=== PATIENT | male | born 1955 | race Caucasian/White ===

== ENCOUNTER 2016-11-29 12:14 | Emergency (ER) | payer OTHER ==
[~2016-11-29] VITALS: Ht 175.3 cm; Wt 83.9 kg
--- NOTE | 2016-11-29 12:42 | ED GI/GU/ABDOMINAL COMPLAINT ---
History of Present Illness General Chief Complaint: Abdominal Pain/Flank Pain Stated Complaint: ABD PAIN SINCE THIS AM Source: patient, family Exam Limitations: no limitations Vital Signs & Intake/Output Vital Signs & Intake/Output Vital Signs Date Time Temp Pulse Resp B/P B/P Pulse O2 O2 Flow FiO2 Mean Ox Delivery Rate 11/29 1402 97.6 66 18 128/76 99 Room Air 11/29 1223 96.7 69 16 130/80 97 Room Air Allergies Coded Allergies: NO KNOWN ALLERGIES (11/29/16) Reconcile Medications Olmesartan Medoxomil (Benicar) 20 MG TABLET 0.5 TAB PO DAILY HEART (Reported) Triage Note: PT STATES HE HAS HAD SEVERE STOMACH PAINS THAT COMES IN WAVES. PT WENT TO MEDICAL AT WORK AND WAS TOLD TO COME GET CHECKED TO R/O HERNIA. PT STATES HE HAD FOOD POINENING IN THE PAST AND FELT THAT IS WHAT IT WAS. Triage Nurses Notes Reviewed? yes HPI: Patient has had abdominal pain since this morning. The pain is periumbilical. Slight nausea but no vomiting. Patient states he had 4 bowel movements today the first to her normal dose second to work more paced light. The pain is constant. There are no aggravating or mitigating factors. He rates the pain at a 6 out of 10. The pain is cramping in nature. The pain comes wave like in intensity but never goes away entirely. Patient went to the [facility] at work and they sent him in to rule out hernia. Past History Travel History Traveled to [place] past 21 day No Medical History Any Pertinent Medical History? see below for history Cardiovascular: hypertension Surgical History Surgical History: non-contributory Psychosocial History What is your primary language Botswanan Tobacco Use: Current Not Daily Daily Tobacco Use Amount/Type: =< 4 Cigarettes daily ETOH Use: occasional use Illicit Drug Use: denies illicit drug use Family History Hx Contributory? No Review of Systems Review of Systems Constitutional: Reports: no symptoms. EENTM: Reports: no symptoms. Respiratory: Reports: no symptoms. Cardiovascular: Reports: no symptoms. GI: Reports: see HPI, abdominal pain, nausea. Genitourinary: Reports: no symptoms. Musculoskeletal: Reports: no symptoms. Skin: Reports: no symptoms. Neurological/Psychological: Reports: no symptoms. Hematologic/Endocrine: Reports: no symptoms. Immunologic/Allergic: Reports: no symptoms. All Other Systems: Reviewed and Negative Physical Exam Physical Exam General Appearance: well developed/nourished, alert, awake Head: atraumatic, normal appearance Eyes: Bilateral: PERRL, EOMI. Ears, Nose, Throat, Mouth: hearing grossly normal, moist mucous membrane Neck: normal inspection, supple, full range of motion Respiratory: normal breath sounds, chest non-tender, no respiratory distress, lungs clear Cardiovascular: regular rate/rhythm, normal peripheral pulses Gastrointestinal: normal bowel sounds, soft, no organomegaly, tenderness ( PERIUMBILICAL) Back: normal inspection, normal range of motion Extremities: normal range of motion Neurologic/Psych: no motor/sensory deficits, awake, alert, oriented x 3, normal mood/affect Skin: intact, normal color, warm/dry Core Measures ACS in differential dx? No Severe Sepsis Present: No Septic Shock Present: No Progress Differential Diagnosis: appendicitis, biliary colic, bowel obstruction, cholecystitis, diverticulitis, gastritis, hepatitis, hernia, ischemic bowel, inflamm bowel dis, pancreatitis, PUD/GERD, SBO Plan of Care: Orders Procedure Date/time Status EKG 11/29 1536 Active URINALYSIS 11/29 1241 Complete LIPASE 11/29 1241 Complete COMPREHENSIVE METABOLIC PANEL 11/29 1241 Complete CBC WITHOUT DIFFERENTIAL 11/29 1241 Complete AMYLASE 11/29 1241 Complete Laboratory Tests 11/29/16 1354: Urine Color YEL, Urine Clarity CLEAR, Urine pH 7.0, Ur Specific [place] 1.010, Urine Protein NEG, Urine Ketones NEG, Urine Nitrite NEG, Urine Bilirubin NEG, Urine Urobilinogen 0.2, Ur Leukocyte Esterase NEG, Ur Microscopic EXAM NOT REQUIRED, Urine Hemoglobin NEG, Urine Glucose NEG 11/29/16 1251: Anion Gap 10, Estimated GFR > 60, BUN/Creatinine Ratio 14.0, Glucose 94, Calcium 9.5, Total Bilirubin 0.7, AST 23, ALT 46, Alkaline Phosphatase 79, Total Protein 6.6, Albumin 4.6, Globulin 2.0, Albumin/Globulin Ratio 2.3 H, Amylase 53, Lipase 69, CBC w Diff NO MAN DIFF REQ, RBC 5.04, MCV 87.6, MCH 30.1, RDW 12.7, MPV 7.9, Gran % 73.9, Lymphocytes % 19.1 L, Monocytes % 6.2, Eosinophils % 0.4, Basophils % 0.4, Absolute Granulocytes 7.2 H, Absolute Lymphocytes 1.9, Absolute Monocytes 0.6, Absolute Eosinophils 0, Absolute Basophils 0, PUBS MCHC 34.3 Diagnostic Imaging: Viewed by Me: CT Scan. Discussed w/RAD: CT Scan. Radiology Impression: PATIENT: SALONI CALZADA PRESENT AGE: 61 PATIENT ACCOUNT NO: [id number] : 59 LOCATION: [facility] ORDERING PHYSICIAN: RACHEL LEE MD SERVICE DATE: 11/29/16 EXAM TYPE: CAT - CT ABD & PELVIS W IV CONTRAST EXAMINATION: CT ABDOMEN AND PELVIS WITH CONTRAST CLINICAL INFORMATION: 61-year-old male patient with periumbilical pain. COMPARISON: None TECHNIQUE: Multidetector volumetric imaging was performed of the abdomen and pelvis before and after the IV administration of 95 mL of Optiray 350 intravenous contrast. Sagittal and coronal reformatted images were obtained on the technologist's workstation. DLP: 462. mGy-cm FINDINGS: TRUCK JUMPER: Abnormally dilated air and fluid-filled loops of proximal small intestine in the left flank region indicate partial or early intestinal obstruction of the small intestine. LUNG BASES: The visualized lung bases are unremarkable. LIVER, GALLBLADDER, AND BILIARY TREE: Normal. PANCREAS: Unremarkable. SPLEEN: Normal in size. A punctate calcification represents a granuloma. ADRENAL GLANDS: Unremarkable. KIDNEYS AND URETERS: The kidneys are normal in size, shape, and attenuation. No hydronephrosis, hydroureter, or calculi seen. No perinephric stranding. BLADDER: Partially filled and unremarkable. A urachal remnant is present. GASTROINTESTINAL TRACT: The colon is normal as is the appendix. The stomach is decompressed. Abnormally dilated fluid-filled loops of small intestine are present in the left abdomen. There are two noncontiguous areas of relative luminal narrowing with thickened muniz and mucosal enhancement seen in the lower left abdomen. This is felt to be the cause of the partial or early small bowel obstruction. In addition, 11 cm of the distal and terminal ileum show relative fixed narrowing. There is no free air or free fluid. ABDOMINAL WALL: No significant hernia is appreciated. LYMPH NODES: Normal. VASCULAR: Unremarkable. PELVIC VISCERA: Unremarkable. OSSEOUS STRUCTURES: Unremarkable except for disc space narrowing and vacuum joint at L5-S1. IMPRESSION: 1. Early or partial intestinal obstruction level of the proximal small intestine. Based on appearance of the terminal and distal ileum, the skip areas of abnormally thick walled enhancing loops in the left abdomen, some form of IBD is suspected. Does the patient have a history of Crohn's disease? 2. No hernia within the anterior abdominal wall. 3. Relatively fixed narrowing of the terminal and distal ileum. DICTATED BY: ANGELINA EPTSEIN MD DATE/TIME DICTATED:11/29/161408 QUANTITY SURVEYOR:COURTNEY DATE/TIME TRANSCRIBED:11/29/161408 CONFIDENTIAL, DO NOT COPY WITHOUT APPROPRIATE AUTHORIZATION. <Electronically signed in Other Vendor System> SIGNED BY: ANGELINA EPSTEIN MD 11/29/16 1176 Initial ED EKG: NSR, no ST T wave changes Comments: Discussed with Dr. Banda. He will have surgical PA evaluate the patient. Departure Departure Disposition: HOME OR SELF CARE Condition: Stable Clinical Impression Primary Impression: Lower abdominal pain, unspecified Referrals: MANI CASTILLO,BASHIR VALDEZ MD,BONI Shook Additional Instructions: CLEAR LIQUIDS ONLY UNTIL PAIN FREE FOLLOW UP WITH DR. VALDEZ RETURN FOR AQNY CONCERNS Departure Forms: Customer Survey General Discharge Information
[2016-11-29 12:59] LABS: ABSOLUTE BASOPHIL COUNT 0 /CUMM (0.0-0.2); ABSOLUTE EOSINOPHIL COUNT 0 /CUMM (0.0-0.7); ABSOLUTE GRANULOCYTE CT 7.2 /CUMM (1.4-6.5); ABSOLUTE LYMPH COUNT 1.9 /CUMM (1.2-3.4); ABSOLUTE MONOCYTE COUNT 0.6 /CUMM (0.10-0.60); BASOPHIL % 0.4 % (0.0-2.0); EOSINOPHIL % 0.4 % (0-5); GRANULOCYTE % 73.9 % (42.2-75.2); HEMATOCRIT 44.2 % (42-52); MEAN CORPUSCULAR HGB 30.1 PG (27.0-31.0); MEAN CORPUSCULAR HGB CONC 34.3 G/DL (33.0-37.0); MEAN CORPUSCULAR VOLUME 87.6 FL (80.0-94.0); MEAN PLATELET VOLUME 7.9 FL (7.4-10.4); PLATELET COUNT 249 /CUMM (130-400); RBC DISTRIBUTION WIDTH 12.7 % (11.5-14.5); RED BLOOD CELL CT 5.04 /CUMM (4.70-6.10); WHITE BLOOD CELL COUNT 9.8 /CUMM (4.8-10.8)
[2016-11-29] MEDS ORDERED: BENICAR20 M1 PO (14:11)
--- NOTE | 2016-11-29 14:35 | CT SCAN REPORT ---
EXAMINATION: CT ABDOMEN AND PELVIS WITH CONTRAST CLINICAL INFORMATION: 61-year-old male patient with periumbilical pain. COMPARISON: None TECHNIQUE: Multidetector volumetric imaging was performed of the abdomen and pelvis before and after the IV administration of 95 mL of Optiray 350 intravenous contrast. Sagittal and coronal reformatted images were obtained on the technologist's workstation. DLP: 462. mGy-cm FINDINGS: CHARACTER IMPERSONATOR: Abnormally dilated air and fluid-filled loops of proximal small intestine in the left flank region indicate partial or early intestinal obstruction of the small intestine. LUNG BASES: The visualized lung bases are unremarkable. LIVER, GALLBLADDER, AND BILIARY TREE: Normal. PANCREAS: Unremarkable. SPLEEN: Normal in size. A punctate calcification represents a granuloma. ADRENAL GLANDS: Unremarkable. KIDNEYS AND URETERS: The kidneys are normal in size, shape, and attenuation. No hydronephrosis, hydroureter, or calculi seen. No perinephric stranding. BLADDER: Partially filled and unremarkable. A urachal remnant is present. GASTROINTESTINAL TRACT: The colon is normal as is the appendix. The stomach is decompressed. Abnormally dilated fluid-filled loops of small intestine are present in the left abdomen. There are two noncontiguous areas of relative luminal narrowing with thickened muniz and mucosal enhancement seen in the lower left abdomen. This is felt to be the cause of the partial or early small bowel obstruction. In addition, 11 cm of the distal and terminal ileum show relative fixed narrowing. There is no free air or free fluid. ABDOMINAL WALL: No significant hernia is appreciated. LYMPH NODES: Normal. VASCULAR: Unremarkable. PELVIC VISCERA: Unremarkable. OSSEOUS STRUCTURES: Unremarkable except for disc space narrowing and vacuum joint at L5-S1. IMPRESSION: 1. Early or partial intestinal obstruction level of the proximal small intestine. Based on appearance of the terminal and distal ileum, the skip areas of abnormally thick walled enhancing loops in the left abdomen, some form of IBD is suspected. Does the patient have a history of Crohn's disease? 2. No hernia within the anterior abdominal wall. 3. Relatively fixed narrowing of the terminal and distal ileum.
--- NOTE | 2016-11-29 16:02 | Cons- General Surgery ---
General Information and HPI Consulting Request Date of Consult: 11/29/16 Requested By: Dr Lee, ER Reason for Consult: abdominal pain Source of Information: patient Exam Limitations: no limitations History of Present Illness: 61-year-old male without any previous abdominal problems or bowel surgeries, presents to the ER with sudden onset of severe diffuse abdominal cramping sensation which started at 7:30 this morning. He states that he went out to a restaurant last night, thought that the chicken might be "bad ". He woke this morning with above symptoms and after being evaluated at his medical facility at work, he was sent here for further evaluation. In the emergency department he received blood tests and a CT scan of the abdomen and pelvis with IV contrast which showed suspicion for partial or early small bowel obstructions and possible skip lesions suggestive of Crohn's disease. Patient denies any previous abdominal problems, he does not have any previous abdominal pain. He has history of having a hemorrhoid surgery approximately 5 years ago due to constipation issues and has been on Metamucil since without any problems with further constipation or hemorrhoids. Patient denies any nausea or vomiting. He states his abdomen feels distended, he has had for soft bowel movements of toothpaste consistency and he has a normal appetite, he states"I'm starving". His pain is about a 2 out of 10 in the mid abdominal region. He has had 3 colonoscopies in the past with only polyps noted, last colonoscopy was 2013. He sees Dr. Brad Cardoza as outpatient. Surgery was consulted for further evaluation of his abdominal pain and CT findings. Allergies/Medications Allergies: Coded Allergies: NO KNOWN ALLERGIES (11/29/16) Home Med List: Olmesartan Medoxomil (Benicar) 20 MG TABLET 0.5 TAB PO DAILY HEART (Reported) Past History Medical History Cardiovascular: hypertension Gastrointestinal: hemorrhoid Surgical History Pertinent Surgical History: hemorrhoidectomy Multiple orthopedic surgeries Psychosocial History ETOH Use: occasional use Illicit Drug Use: denies illicit drug use Review of Systems Review of Systems: Review of systems: See HPI, all other systems negative. Constitutional: No chills fever or weight loss HEENT: No visual changes no sore throat no congestion Cardiovascular: No chest pain ,palpitation , orthopnea or ankle swelling Skin: No jaundice no rashes Respiratory: No dyspnea cough sputum or hemoptysis GI: No nausea no vomiting see HPI : No dysuria no hematuria Musclulo skeletal: No back pain no neck pain, Neurologic: No numbness no confusion Psych: No stress anxiety or depression,. Heme/endocrine: No bruising no bleeding no polyuria or polydipsia Immunology: No splenectomy or history of AIDS Exam & Diagnostic Data Vital Signs and I&O Vital Signs Date Time Temp Pulse Resp B/P B/P Pulse O2 O2 Flow FiO2 Mean Ox Delivery Rate 11/29 1402 97.6 66 18 128/76 99 Room Air 11/29 1223 96.7 69 16 130/80 97 Room Air Intake & Output 11/29 1600 11/29 0800 11/29 0000 11/28 1600 11/28 0800 11/28 0000 Intake Total 1000 Output Total Balance 1000 Intake, IV 1000 Patient 185 lb Weight Weight Reported by Patient Measurement Method Physical Exam: Well-developed well-nourished person in no acute distress HEENT: Normal EENT exam, extraocular motion intact, Nose is atraumatic. External auditory canal and Tympanic membranes clear. Pharynx normal. No swelling or edema. Neck: Supple, no lymphadenopathy, normal range of motion without pain or tenderness Back: Nontender, no CVA tenderness. Full range of motion Cardiovascular: Regular rate and rhythms no murmurs, normal JVP Respiratory: Chest nontender. No respiratory distress. Breath sounds clear to auscultation bilaterally Abdomen: Very small reducible umbilical hernia, nontender. Soft, mild tenderness to the mid abdominal region, mild abdominal distention no appreciable organomegaly. Hypoactive bowel sounds. No ascites Extremity: No edema, no calf tenderness to palpation, normal and equal pulses. Neuro: Alert oriented x3, motor sensory normal, Skin: No appreciable rash on exposed skin, skin is warm and dry. Psych: Mood and affect is normal, memory and judgment is normal. Last 24 Hours of Labs: Laboratory Tests 11/29 11/29 1354 1251 Chemistry Sodium (137 - 145 mmol/L) 140 Potassium (3.5 - 5.1 mmol/L) 4.2 Chloride (98 - 107 mmol/L) 101 Carbon Dioxide (22 - 30 mmol/L) 28 Anion Gap (5 - 16) 10 BUN (9 - 20 mg/dL) 14 Creatinine (0.7 - 1.2 mg/dL) 1.0 Estimated GFR (>60 ml/min) > 60 BUN/Creatinine Ratio (7 - 25 %) 14.0 Glucose (65 - 99 mg/dL) 94 Calcium (8.4 - 10.2 mg/dL) 9.5 Total Bilirubin (0.2 - 1.3 mg/dL) 0.7 AST (17 - 59 U/L) 23 ALT (21 - 72 U/L) 46 Alkaline Phosphatase (< 127 U/L) 79 Total Protein (6.3 - 8.2 g/dL) 6.6 Albumin (3.5 - 5.0 g/dL) 4.6 Globulin (1.9 - 4.2 gm/dL) 2.0 Albumin/Globulin Ratio (1.1 - 2.2 %) 2.3 H Amylase (30 - 110 U/L) 53 Lipase (23 - 300 U/L) 69 Hematology CBC w Diff NO MAN DIFF REQ WBC (4.8 - 10.8 /CUMM) 9.8 RBC (4.70 - 6.10 /CUMM) 5.04 Hgb (14.0 - 18.0 G/DL) 15.2 Hct (42 - 52 %) 44.2 MCV (80.0 - 94.0 FL) 87.6 MCH (27.0 - 31.0 PG) 30.1 RDW (11.5 - 14.5 %) 12.7 Plt Count (130 - 400 /CUMM) 249 MPV (7.4 - 10.4 FL) 7.9 Gran % (42.2 - 75.2 %) 73.9 Lymphocytes % (20.5 - 51.1 %) 19.1 L Monocytes % (1.7 - 9.3 %) 6.2 Eosinophils % (0 - 5 %) 0.4 Basophils % (0.0 - 2.0 %) 0.4 Absolute Granulocytes (1.4 - 6.5 /CUMM) 7.2 H Absolute Lymphocytes (1.2 - 3.4 /CUMM) 1.9 Absolute Monocytes (0.10 - 0.60 /CUMM) 0.6 Absolute Eosinophils (0.0 - 0.7 /CUMM) 0 Absolute Basophils (0.0 - 0.2 /CUMM) 0 PUBS MCHC (33.0 - 37.0 G/DL) 34.3 Urines Urine Color (YEL,AMB,STR) YEL Urine Clarity (CLEAR) CLEAR Urine pH (5.0 - 8.0) 7.0 Ur Specific [place] (1.001 - 1.035) 1.010 Urine Protein (NEG,<30 MG/DL) NEG Urine Ketones (NEG) NEG Urine Nitrite (NEG) NEG Urine Bilirubin (NEG) NEG Urine Urobilinogen (0.1 - 1.0 EU/dl) 0.2 Ur Leukocyte Esterase (NEG) NEG Ur Microscopic EXAM NOT REQUIRED Urine Hemoglobin (NEG) NEG Urine Glucose (N MG/DL) NEG Imaging Results: PATIENT: SALONI CALZADA PRESENT AGE: 61 PATIENT ACCOUNT NO: [id number] : 59 LOCATION: [facility] ORDERING PHYSICIAN: RACHEL LEE MD SERVICE DATE: 11/29/16 EXAM TYPE: CAT - CT ABD & PELVIS W IV CONTRAST EXAMINATION: CT ABDOMEN AND PELVIS WITH CONTRAST CLINICAL INFORMATION: 61-year-old male patient with periumbilical pain. COMPARISON: None TECHNIQUE: Multidetector volumetric imaging was performed of the abdomen and pelvis before and after the IV administration of 95 mL of Optiray 350 intravenous contrast. Sagittal and coronal reformatted images were obtained on the technologist's workstation. DLP: 462. mGy-cm FINDINGS: OPERATIONS RESEARCH MANAGER: Abnormally dilated air and fluid-filled loops of proximal small intestine in the left flank region indicate partial or early intestinal obstruction of the small intestine. LUNG BASES: The visualized lung bases are unremarkable. LIVER, GALLBLADDER, AND BILIARY TREE: Normal. PANCREAS: Unremarkable. SPLEEN: Normal in size. A punctate calcification represents a granuloma. ADRENAL GLANDS: Unremarkable. KIDNEYS AND URETERS: The kidneys are normal in size, shape, and attenuation. No hydronephrosis, hydroureter, or calculi seen. No perinephric stranding. BLADDER: Partially filled and unremarkable. A urachal remnant is present. GASTROINTESTINAL TRACT: The colon is normal as is the appendix. The stomach is decompressed. Abnormally dilated fluid-filled loops of small intestine are present in the left abdomen. There are two noncontiguous areas of relative luminal narrowing with thickened muniz and mucosal enhancement seen in the lower left abdomen. This is felt to be the cause of the partial or early small bowel obstruction. In addition, 11 cm of the distal and terminal ileum show relative fixed narrowing. There is no free air or free fluid. ABDOMINAL WALL: No significant hernia is appreciated. LYMPH NODES: Normal. VASCULAR: Unremarkable. PELVIC VISCERA: Unremarkable. OSSEOUS STRUCTURES: Unremarkable except for disc space narrowing and vacuum joint at L5-S1. IMPRESSION: 1. Early or partial intestinal obstruction level of the proximal small intestine. Based on appearance of the terminal and distal ileum, the skip areas of abnormally thick walled enhancing loops in the left abdomen, some form of IBD is suspected. Does the patient have a history of Crohn's disease? 2. No hernia within the anterior abdominal wall. 3. Relatively fixed narrowing of the terminal and distal ileum. DICTATED BY: ANGELINA EPSTIEN MD DATE/TIME DICTATED:11/29/161408 ENGLISH AS A SECOND LANGUAGE INSTRUCTOR:COURTNEY DATE/TIME TRANSCRIBED:11/29/161408 Other Results: nsr 54 bpm, no st/t wave dmitrynes Assessment/Plan Assessment/Plan 61-year-old male with abdominal pain and abnormal-appearing CT scan concerning for possible early partial small bowel obstruction. Findings clinically more consistent with enteritis/food poisoning. Discussed with Dr. Banda, recommend clear liquid diet until return of normal bowel function and returning to the emergency department with worsening abdominal pain nausea vomiting or fever. He should follow-up with his senior web applications developer Conrad Cradoza MD as outpatient in the next few weeks to review the CT scan with him as well. This was discussed with patient who understands and agrees with plan Problem List: 1. Enteritis 2. Lower abdominal pain, unspecified Consult Acknowledgment - Thank you for your consult request.
[2016-11-29 16:21] VITALS: BP 145/86
== END 2016-11-29 16:22 ==
LOC: ERH 12:14
PROVIDERS: Emergency Medicine
DX: R10.33 Periumbilical pain (principal)
CPT/HCPCS: 74177; 81003; 93005; 93010; 96361; 96374; J1885